=== PATIENT | female | born 1985 | race Caucasian/White ===

== ENCOUNTER → 2023-12-13 | Outpatient (CLI) | payer OTHER ==
[2023-12-13 12:16] VITALS: BP 118/77; PULSE 59; RESP 16; TEMP 97.6
--- NOTE | 2023-12-13 12:17 | P.GSHP ---
History of Present Illness H&P Date: 12/13/23 Chief Complaint: left breast mass Gayathri is a 38 year old female seen in consultation for Dr. Fierro regarding a left breast mass. She had a left breast ultrasound done on 07-05-23 which showed a 1.1 cm solid mass probably consistent with a fibroadenoma. She has lost 200 pounds following a gastric bypass. She noted a pain after the weight loss. The pain is in the UOQ of the left breast and has been present for at least 1 year. The pain is intermittent. There is no discrete mass at this site. It is tender with any palpation. She is not complaining of any recent trauma or infection in the breast. She has not had any surgery on her breast. She has not had any biopsies. She had a bilateral mammogram one year ago, I do not have those results. Note 09-19-23 Dr. Fierro reviewed Caffeine: 32 oz/day nicotine: none chocolate; occasional BCP: less than 2 years stopped in 2018 Family History: father: kidney cancer Hormonal History: menarche: 11 M2 age at first : 20, breast fed: no periods partial hysterectomy in 2019, done for Essure was allergic to it because it was nickel Medical History: none Surgical History: partial hysterectomy gallbladder Bladder sling 2 D&C Gastric bypass Plan Nicotine: Negative Alcohol: General Drugs: Marijuana medical - Constitutional Constitutional: Reports sweats - EENT Eyes: denies blurred vision, denies pain Ears: deny: decreased hearing, tinnitus Ears, nose, mouth and throat: Denies headache, Denies sore throat - Breasts Breasts: bilateral: as per HPI - Cardiovascular Cardiovascular: Denies chest pain, Denies shortness of breath - Respiratory Respiratory: Denies cough, Denies 7 - Gastrointestinal Comment: GERD Gastrointestinal: Reports constipation - Genitourinary (Female) Genitourinary: Denies dysuria, Denies hematuria - Menstruation Menstruation: Reports as per HPI - Musculoskeletal Musculoskeletal: Reports as per HPI - Integumentary Integumentary: Denies pruritus, Denies rash - Neurological Neurological: Denies numbness, Denies weakness - Psychiatric Psychiatric: Denies anxiety, Denies depression - Endocrine Endocrine: Reports weight change, Denies fatigue - Hematologic/Lymphatic Comment: none - Allergic/Immunologic Allergic/Immunologic: Reports seasonal allergies Past Medical History History of Any Multi-Drug Resistant Organisms: None Reported Smoking Status: Former smoker Medications and Allergies Allergies Allergy/AdvReac Type Severity Reaction Status Date / Time No Known Allergies Allergy Verified 12/13/23 11:53 Surgical - Exam Vital Signs Temp Pulse Resp BP Pulse Ox 97.6 F 59 L 16 118/77 100 12/13/23 11:53 12/13/23 11:53 12/13/23 11:53 12/13/23 11:53 12/13/23 11:53 - General no distress - Eyes normal ocular movement - Neck trachea midline - Respiratory normal respiratory effort, clear to auscultation - Cardiovascular Rhythm: regular Heart Sounds: normal: S1, S2 - Integumentary normal turgor - Neurologic no disoriented, no combative - Musculoskeletal normal gait, normal posture - Psychiatric oriented to time, oriented to person, oriented to place, speech is normal, memory intact Breast Exam: BRA: 32D inspection: Bilateral grade 3 ptosis Palpation: Right breast: Multi positional exam no dominant masses or nodules of concern Right axilla: No adenopathy of concern Left breast: Multi positional exam no dominant masses or nodules of concern particular attention to the 12:00 region did not reveal a specific mass Left axilla: No adenopathy of concern Results Ultrasound results reviewed from 07-05-2023 Assessment and Plan Assessment: Impression: Left breast upper outer quadrant Ultrasound revealing a probable fibroadenoma at the site of pain No discrete mass palpable in either breast Plan: Patient due for bilateral mammogram Repeat left breast ultrasound with particular attention to the area of the pain Follow-up after radiographic studies done consider remove lesion in the UOQ if consistent with a symptomatic fibroadenoma CC: Dr. Fierro
== END ==
LOC: WWCWWP 11:46
PROVIDERS: ATTEND Surgery
DX: R92.8 Other abnormal and inconclusive findings on diagnostic imaging of breast (principal); N63.20 Unspecified lump in the left breast, unspecified quadrant; N64.81 Ptosis of breast; N64.4 Mastodynia; Z87.891 Personal history of nicotine dependence

== ENCOUNTER → 2023-12-25 | Outpatient (CLI) | payer OTHER ==
--- NOTE | 2023-12-25 13:49 | MM ---
Reason for Exam: Follow-up at short interval from prior study. Last screening mammogram was performed 12 month(s) ago. Patient History: Menarche at age 11. First Full-Term at age 20. Hysterectomy at age 33. Patient has history of breast feeding. Risk Values: Nubia 5 year model risk: 0.4%. NCI Lifetime model risk: 10.0%. Prior Study Comparison: 12/31/2022 Bilateral MG 3D screening mammo w/cad, Unknown. Tissue Density: The breasts are extremely dense, which lowers the sensitivity of mammography. Findings: Analyzed By CAD. Vague nodular density left 12:00 position 4 cm from the nipple measuring 1 cm. Ultrasound is recommended. No breast masses within the right breast. No suspicious microcalcifications. Overall Assessment: Incomplete: need additional imaging evaluation, BI-RAD 0 Management: Diagnostic Breast Ultrasound of the left breast. . Results were given to the patient verbally at the time of exam. Patient should continue monthly self-breast exams. A clinical breast exam by your physician is recommended on an annual basis. This exam should not preclude additional follow-up of suspicious palpable abnormalities. Note on Nubia scores and lifetime risk: 1. A Nubia score greater than 3% is considered moderate risk. If this is the case, consider specialist referral to assess eligibility for a risk reducing agent. 2. If overall lifetime risk for the development of breast cancer is 20% or higher, the patient may qualify for future screening with alternating mammogram and breast MRI. Electronically signed and approved by: Gabino Lerma M.D. Radiologis
--- NOTE | 2023-12-25 14:13 | USB ---
Reason for Exam: Additional evaluation requested from prior study. Patient History: Menarche at age 11. First Full-Term at age 20. Hysterectomy at age 33. Patient has history of breast feeding. Risk Values: Nubia 5 year model risk: 0.4%. NCI Lifetime model risk: 10.0%. Technique: Method: Targeted. Prior Study Comparison: 12/31/2022 Bilateral MG 3D screening mammo w/cad, Unknown. Findings: The upper section of the breast of the left breast, the axilla of the left breast and the retroareolar of the left breast were scanned. Solid mass at the left 12:00 position 4 cm from the nipple measuring 1.1 x 0.5 cm. Tissue diagnosis is recommended. Overall Assessment: Suspicious, BI-RAD 4 Management: Ultrasound Core Biopsy of the left breast. A clinical breast exam by your physician is recommended on an annual basis and results should be correlated with mammographic findings. This exam should not preclude additional follow-up of suspicious palpable abnormalities. Results were given to the patient verbally at the time of exam. Electronically signed and approved by: Gabino Lerma M.D. Radiologis
== END | disposition home or self-care (01) ==
LOC: RADMAMWWP 12:55
PROVIDERS: ATTEND Surgery
DX: R92.343 Mammographic extreme density, bilateral breasts (principal)
CPT/HCPCS: 77066; 76642; G0279; 77062

== ENCOUNTER → 2024-01-06 | Day surgery (SDC) | payer OTHER | LOC: RADUSWWP 12:27 | PROVIDERS: ATTEND Surgery | DX: D24.2 Benign neoplasm of left breast (principal) | CPT/HCPCS: 77065; 19083; A4648; 88305 ==

== ENCOUNTER → 2024-01-17 | Outpatient (CLI) | payer OTHER ==
--- NOTE | 2024-01-17 10:56 | P.PN ---
Subjective Progress Note Date: 01/17/24 Principal diagnosis: fibroadenoma left breast If a solid lesion is seen of concern in the left breast ultrasound would recommend a core biopsy prior to the patient being seen again by myself. Original Note: History of Present Illness H&P Date: 12/13/23 Chief Complaint: left breast mass Gayathri is a 38 year old female seen in consultation for Dr. Fierro regarding a left breast mass. She had a left breast ultrasound done on 07-05-23 which showed a 1.1 cm solid mass probably consistent with a fibroadenoma. She has lost 200 pounds following a gastric bypass. She noted a pain after the weight loss. The pain is in the UOQ of the left breast and has been present for at least 1 year. The pain is intermittent. There is no discrete mass at this site. It is tender with any palpation. She is not complaining of any recent trauma or infection in the breast. She has not had any surgery on her breast. She has not had any biopsies. She had a bilateral mammogram one year ago, I do not have those results. bilateral mammogram 12-25-23, followed by a left breast ultrasound. A solid lesion noted at 12:00. Core biopsy of left breast lesion at 12:00 done on 01-06-24 consistent with a fibroadenoma. She tolerated the procedure without difficulty. However, she continues to have pain at the site of the fibroadenoma. This is symptomatic for her. Caffeine: 32 oz/day nicotine: none chocolate; occasional BCP: less than 2 years stopped in 2018 Family History: father: kidney cancer Hormonal History: menarche: 11 M2 age at first : 20, breast fed: no periods partial hysterectomy in 2019, done for Essure (permanant control in tubes) was allergic to it because it was nickel Medical History: none Surgical History: partial hysterectomy gallbladder Bladder sling 2 D&C Gastric bypass Social History: Nicotine: Negative Alcohol: General Drugs: Marijuana medical - Constitutional Constitutional: Reports sweats - EENT Eyes: denies blurred vision, denies pain Ears: deny: decreased hearing, tinnitus Ears, nose, mouth and throat: Denies headache, Denies sore throat - Breasts Breasts: bilateral: as per HPI - Cardiovascular Cardiovascular: Denies chest pain, Denies shortness of breath - Respiratory Respiratory: Denies cough - Gastrointestinal Comment: GERD Gastrointestinal: Reports constipation - Genitourinary (Female) Genitourinary: Denies dysuria, Denies hematuria - Menstruation Menstruation: Reports as per HPI - Musculoskeletal Musculoskeletal: Reports as per HPI - Integumentary Integumentary: Denies pruritus, Denies rash - Neurological Neurological: Denies numbness, Denies weakness - Psychiatric Psychiatric: Denies anxiety, Denies depression - Endocrine Endocrine: Reports weight change, Denies fatigue - Hematologic/Lymphatic Comment: none - Allergic/Immunologic Allergic/Immunologic: Reports seasonal allergies Past Medical History History of Any Multi-Drug Resistant Organisms: None Reported Smoking Status: Former smoker Medications and Allergies Allergies Allergy/AdvReac Type Severity Reaction Status Date / Time No Known Allergies Allergy Verified 12/13/23 11:53 Objective - Vital Signs Vital signs: Vital Signs Temp 98.7 F 01/17/24 10:34 Pulse 72 01/17/24 10:34 Resp 17 01/17/24 10:34 BP 111/72 01/17/24 10:34 Pulse Ox 96 01/17/24 10:34 FiO2 Intake & Output 01/16/24 01/17/24 01/17/24 18:59 06:59 18:59 Weight 68.039 kg - Constitutional General appearance: Present: cooperative - EENT Eyes: Present: EOMI ENT: Present: hearing grossly normal - Neck Neck: Present: normal ROM - Respiratory Respiratory: bilateral: CTA - Cardiovascular Heart sounds: normal: S1, S2 - Gastrointestinal General gastrointestinal: Present: soft - Integumentary Integumentary: Present: normal turgor - Musculoskeletal Musculoskeletal: Present: gait normal - Psychiatric Psychiatric: Present: A&O x's 3, appropriate affect, intact judgment & insight - Additional findings Additional findings: Breast Exam: BRA: 32D inspection: Bilateral grade 3 ptosis Palpation: Right breast: Multi positional exam no dominant masses or nodules of concern Right axilla: No adenopathy of concern Left breast: Multi positional exam no dominant masses or nodules of concern particular attention to the 12:00 region did not reveal a specific mass, biopsy site clean and dry Left axilla: No adenopathy of concern Assessment and Plan Assessment: Impression: Symptomatic left breast fibroadenoma Plan: Needle localization excision of symptomatic left breast fibroadenoma Possible oncoplastic tissue transfer Risk and benefits of the procedure discussed with the patient. Risk include but are not limited to bleeding, infection, reaction to the anesthetic. Additionally there is a possibility that the lesion could come back again. She understands and wishes to proceed. Additionally I have discussed with her I cannot guarantee this will resolve her breast pain but at least we will know that the fibroadenoma is gone and not causing the pain. CC: Dr. Fierro
[2024-01-17 11:08] VITALS: BP 111/72; PULSE 72; RESP 17; TEMP 98.7
== END ==
LOC: WWCWWP 10:02
PROVIDERS: ATTEND Surgery
DX: R92.8 Other abnormal and inconclusive findings on diagnostic imaging of breast (principal); D24.2 Benign neoplasm of left breast; N63.20 Unspecified lump in the left breast, unspecified quadrant; Z87.891 Personal history of nicotine dependence; Z98.84 Bariatric surgery status